=== PATIENT | female | born 1995 | race Caucasian/White ===

== ENCOUNTER 2016-07-08 18:51 | Emergency (ER) | payer OTHER ==
--- NOTE | 2016-07-08 20:47 | ED CLINICAL REPORT ---
Clinical Report - Physicians/Mid Levels [facility] [address] [place] [address] 07/08/2016 18:53 Patient: KRYS COLE Time Seen: 20:18; initial patient contact, initial documentation, patient care assumed. Arrived- By private vehicle. Historian- patient and mother. HISTORY OF PRESENT ILLNESS Chief Complaint: SINUS PAIN. This started about 1 weeks ago and is still present. It was abrupt in onset and has been constant. The illness is described as severe. The patient has had a cough, nasal congestion and sinus pressure. No sputum production, difficulty breathing, fever, muscle aches or sore throat. No ear pain. (swollen thing in nose, everyone keeps saying I am here for sinuses, I am here for this thing in my nose, it is swollen, painful, and now my R side of face is getting swollen). Additional history - No known contact with a sick individual. No recent travel. Similar symptoms previously: None. Recent medical care: Not recently seen/assessed. REVIEW OF SYSTEMS The patient has had a pressure-like facial headache. No vomiting or diarrhea. All systems otherwise negative, except as recorded above. PAST HISTORY See nurses notes. PROBLEMS: Depression. Anxiety Reaction. OCD. ADD - Attention Deficit Disorder. PCOS. Migraine Headache. IBS. Asthma. Gastroesophageal Reflux Disease. --19:22 Karolina Mchugh R.N. ADDITIONAL SURGERIES: Adenoidectomy. Tonsillectomy. --19:22 Karolina Mchugh RGilda. SOCIAL HISTORY Never smoker. Not exposed to second-hand smoke at home. No alcohol use or drug use. No recent travel. Is a local resident. FAMILY HISTORY Negative. ADDITIONAL NOTES The nursing notes have been reviewed with agreement regarding the chief complaint, HPI, ROS, PMH and patient medications and allergies. PHYSICAL EXAM Vital Signs: 07/08/2016 19:23 BP: 143/87. HR: 99. RR: 18. O2 saturation: 100%. Temp: 98.8 F. Have been reviewed as normal and appear to be correct. Appearance: Alert. No acute distress. Head: Tenderness present to percussion/palpation of the sinuses: severe right maxillary tenderness. Eyes: Pupils equal, round and reactive to light. Eyes normal inspection. ENT: Ears normal. Nose abnormal. Pharynx normal. Uvula midline. Normal ear exam. No nasal discharge, pharyngeal erythema, mouth ulcerations, tonsillar exudate or peritonsillar mass. No muffled or hoarse voice, trismus or trouble handling secretions. (R side of cheek area appears slightly swollen). The mucous membranes are not dry. (swollen area to inside R nare, ? start of abscess, no erythema, no dc, tender). Neck: Normal inspection. Neck supple. CVS: Normal heart rate and rhythm. Heart sounds normal. Pulses normal. Respiratory: No respiratory distress. Breath sounds normal. Abdomen: Severely obese. Back: Normal inspection. Skin: Skin warm and dry. Normal skin color. No rash. Normal skin turgor. Extremities: Extremities exhibit normal ROM. No lower extremity edema. Neuro: Oriented X 3. No motor deficit. No sensory deficit. PROGRESS AND PROCEDURES Patient and mother counseled in person regarding the patient's stable condition and diagnosis. Differential Diagnosis: Other possible considerations: sinusitis, nasal polyp, tumor, abscess, mrsa. Above considerations are based on history and physical exam. Differential diagnosis was discussed with patient and patient's mother. Disposition: Discharged home in good and improved condition (20:47). Condition: good and stable. CLINICAL IMPRESSION Single superficial abscess (R nare). INSTRUCTIONS (warm compresses, as discussed). Warnings: GENERAL WARNINGS: Return or contact your physician immediately if your condition worsens or changes unexpectedly, if not improving as expected, or if other problems arise. Specifically return if problem worsens. Prescription Medications: Bactrim DS: take 1 tablet orally every 12 hours for 10 days. No refill. Substitution is not permissible. [place] 5 mg / 325 mg tablets: take 1 to 2 orally every 6 hours as needed for pain. Dispense fifteen (15). No refills. Substitution is permissible. Motrin 800 mg tablets: take 1 tablet orally every 8 hours as needed for pain. Dispense thirty (30). No refills. Substitution is permissible. Bactroban 2% ointment: apply small amount to affected area three times daily for 5 days. Dispense twenty-two (22) grams. No refills. Substitution is permissible. Follow-up: Follow up with your doctor in about two days even if well. Call for an appointment. Summary of care provided to patient. Understanding of the discharge instructions verbalized by patient and parent. Follow-up with: Judson Haro MD, ENT, , [address], [facility], [address]; Erik Gonzales MD, ENT, , [facility], [address], [address], [place] [address]; Sarbjit Dominguez MD, ENT, , [facility], [facility] [address] [facility] [address]; Rory Middleton MD, ENT, , [facility], [facility] [address] [facility] [address]; Judson Thompson MD, ENT, , [facility], [facility] [address] [facility] [address]; Darren Silva MD, ENT, , [place] [facility] Office, [address] [facility] [facility] [address], [place], [address] Follow up in about two days as needed. Call for an appointment. Summary of care provided to patient. (Electronically signed by Khushbu Casas A.R.N.P. 07/08/2016 23:14)
--- NOTE | 2016-07-08 20:47 | ED CLINICAL REPORT ---
Clinical Report - Physicians/Mid Levels [facility] [address] [place] [address] 07/08/2016 18:53 Patient: KRYS COLE Time Seen: 20:18; initial patient contact, initial documentation, patient care assumed. Arrived- By private vehicle. Historian- patient and mother. HISTORY OF PRESENT ILLNESS Chief Complaint: SINUS PAIN. This started about 1 weeks ago and is still present. It was abrupt in onset and has been constant. The illness is described as severe. The patient has had a cough, nasal congestion and sinus pressure. No sputum production, difficulty breathing, fever, muscle aches or sore throat. No ear pain. (swollen thing in nose, everyone keeps saying I am here for sinuses, I am here for this thing in my nose, it is swollen, painful, and now my R side of face is getting swollen). Additional history - No known contact with a sick individual. No recent travel. Similar symptoms previously: None. Recent medical care: Not recently seen/assessed. REVIEW OF SYSTEMS The patient has had a pressure-like facial headache. No vomiting or diarrhea. All systems otherwise negative, except as recorded above. PAST HISTORY See nurses notes. PROBLEMS: Depression. Anxiety Reaction. OCD. ADD - Attention Deficit Disorder. PCOS. Migraine Headache. IBS. Asthma. Gastroesophageal Reflux Disease. --19:22 Karolina Mchugh R.N. ADDITIONAL SURGERIES: Adenoidectomy. Tonsillectomy. --19:22 Karolina Mchugh RGilda. SOCIAL HISTORY Never smoker. Not exposed to second-hand smoke at home. No alcohol use or drug use. No recent travel. Is a local resident. FAMILY HISTORY Negative. ADDITIONAL NOTES The nursing notes have been reviewed with agreement regarding the chief complaint, HPI, ROS, PMH and patient medications and allergies. PHYSICAL EXAM Vital Signs: 07/08/2016 19:23 BP: 143/87. HR: 99. RR: 18. O2 saturation: 100%. Temp: 98.8 F. Have been reviewed as normal and appear to be correct. Appearance: Alert. No acute distress. Head: Tenderness present to percussion/palpation of the sinuses: severe right maxillary tenderness. Eyes: Pupils equal, round and reactive to light. Eyes normal inspection. ENT: Ears normal. Nose abnormal. Pharynx normal. Uvula midline. Normal ear exam. No nasal discharge, pharyngeal erythema, mouth ulcerations, tonsillar exudate or peritonsillar mass. No muffled or hoarse voice, trismus or trouble handling secretions. (R side of cheek area appears slightly swollen). The mucous membranes are not dry. (swollen area to inside R nare, ? start of abscess, no erythema, no dc, tender). Neck: Normal inspection. Neck supple. CVS: Normal heart rate and rhythm. Heart sounds normal. Pulses normal. Respiratory: No respiratory distress. Breath sounds normal. Abdomen: Severely obese. Back: Normal inspection. Skin: Skin warm and dry. Normal skin color. No rash. Normal skin turgor. Extremities: Extremities exhibit normal ROM. No lower extremity edema. Neuro: Oriented X 3. No motor deficit. No sensory deficit. PROGRESS AND PROCEDURES Patient and mother counseled in person regarding the patient's stable condition and diagnosis. Differential Diagnosis: Other possible considerations: sinusitis, nasal polyp, tumor, abscess, mrsa. Above considerations are based on history and physical exam. Differential diagnosis was discussed with patient and patient's mother. Disposition: Discharged home in good and improved condition (20:47). Condition: good and stable. CLINICAL IMPRESSION Single superficial abscess (R nare). INSTRUCTIONS (warm compresses, as discussed). Warnings: GENERAL WARNINGS: Return or contact your physician immediately if your condition worsens or changes unexpectedly, if not improving as expected, or if other problems arise. Specifically return if problem worsens. Prescription Medications: Bactrim DS: take 1 tablet orally every 12 hours for 10 days. No refill. Substitution is not permissible. [place] 5 mg / 325 mg tablets: take 1 to 2 orally every 6 hours as needed for pain. Dispense fifteen (15). No refills. Substitution is permissible. Motrin 800 mg tablets: take 1 tablet orally every 8 hours as needed for pain. Dispense thirty (30). No refills. Substitution is permissible. Bactroban 2% ointment: apply small amount to affected area three times daily for 5 days. Dispense twenty-two (22) grams. No refills. Substitution is permissible. Follow-up: Follow up with your doctor in about two days even if well. Call for an appointment. Summary of care provided to patient. Understanding of the discharge instructions verbalized by patient and parent. Follow-up with: Judson Haro MD, ENT, , [address], [facility], [address]; Erik Gonzales MD, ENT, , [facility], [address], [address], [place] [address]; Sarbjit Dominguez MD, ENT, , [facility], [facility] [address] [facility] [address]; Rory Middleton MD, ENT, , [facility], [facility] [address] [facility], [place] [address]; Judson Thompson MD, ENT, , [facility], [facility] [address] [facility] [address]; Darren Silva MD, ENT, , [place] [facility] Office, [address], [place], [address] Follow up in about two days as needed. Call for an appointment. Summary of care provided to patient. (Electronically signed by Khushbu Casas A.R.N.P. 07/08/2016 23:14)
--- NOTE | 2016-07-08 20:48 | ED NURSING NOTES ---
Clinical Report - Nurses [facility] [address] [place] [address] 07/08/2016 18:53 Patient: KRYS COLE TRIAGE Triage time 19:18 Jul 08 2016. Acuity: LEVEL 4. Chief Complaint: (Nasal congestion, swelling, headache). 19:23 07/08/16. SEPSIS SCREEN: Sepsis Screen. Negative (no infection suspected/documented). JULIO C COMA SCORE: [place] Coma Scale: 15- eyes open spontaneously (4); best verbal response- oriented x 4 (5); best motor response- obeys commands (6). --19:23 Karolina Mchugh R.N. 19:23 07/08/16. BP: 143/87. HR: 99. RR: 18. O2 saturation: 100%. Temp: 98.8 F. Pain level now 9/10. --19:23 Karolina Mchugh R.N. Weight: 146 kg stated. Height/Length: 68 inches Per Patient. BMI: 49. --19:18 Karolina Mchugh R.N. Medications Adderall XR Oral. --19:19 Karolina Mchugh R.N. FLUoxetine HCl Oral. --19:19 Karolina Mchugh R.N. Dicyclomine HCl Oral. --19:20 Karolina Mchugh R.N. Topiramate Oral. --19:20 Karolina Mchugh R.NEleazar Ranitidine HCl Oral. --19:20 Karolina Mchugh R.N. PriLOSEC Oral. --19:20 Karolina Mchugh R.N. Potassium. --19:20 Karolina Mchugh R.N. Jolessa Oral. --19:20 Karolina Mchugh R.N. Biotin. --19:21 Karolina Mchugh R.N. Medication/allergy information source: the patient. --19:23 Karolina Mchugh R.N. Allergies Penicillins. --19:19 Karolina Mchugh R.N. History Arrived by private vehicle. Historian: patient. This started yesterday. ( Pain and swelling in nose since yesterday. States feeling pressure in face down to jaw). 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 PAST MEDICAL HX: Last normal menstrual period- yesterday. SOCIAL HX: Never smoker. Occasional alcohol use. No drug use. No infectious disease exposure. ABUSE ASSESSMENT: No report of abuse. NUTRITIONAL RISK ASSESSMENT: The nutritional risk assessment revealed no deficiencies. FUNCTIONAL ASSESSMENT: Functional assessment: no impairments noted. LEARNING NEEDS ASSESSMENT: The learning needs assessment revealed no barriers. SKIN INTEGRITY ASSESSMENT: Skin integrity risk assessment completed. No skin integrity risk identified. --19:23 Karolina Mchugh R.N. PROBLEMS: Depression. Anxiety Reaction. OCD. ADD - Attention Deficit Disorder. PCOS. Migraine Headache. IBS. Asthma. Gastroesophageal Reflux Disease. --19:22 Karolina Mchugh R.N. ADDITIONAL SURGERIES: Adenoidectomy. Tonsillectomy. --19:22 Karolina Mchugh R.N. Interventions ID band on patient. --19:23 Karolina Mchugh R.N. PHYSICAL ASSESSMENT 19:40. Ambulatory to room. GENERAL / NEURO / PSYCH: Alert. Oriented X 4. HEENT: No facial asymmetry noted. Mucous membranes are pink. RESPIRATORY: Respirations not labored. SKIN: Skin intact. Skin is warm and dry. Normal skin turgor. --19:41 Harish Ledesma R.N. NURSING PROGRESS NOTES 19:41. Head of bed elevated. Two patient identifiers checked. Call light placed in reach. Bed placed in lowest position. Brakes of bed on. Patient ready for evaluation- chart flagged. --19:41 Harish Ledesma R.N. 20:48 07/08/2016 Hydrocodone-APAP (Hydrocodone-Acetaminophen) PO 5/325 mg Tablets 1 tab given. Allergies verified, confirmed 5 rights and sedative warning given to the patient. --20:56 Harish Ledesma R.N. 20:51 07/08/2016 Toradol (Ketorolac Tromethamine) IM 60 mg given. Given in the left ventral gluteus. Allergies verified and confirmed 5 rights. --20:56 Harish Ledesma R.N. DISPOSITION / DISCHARGE Condition at departure: improved. The patient was discharged home and accompanied by parent. She left the Emergency Department ambulatory and via private vehicle. --21:09 Kei Mcadams R.N. 21:08 07/08/16. BP: 150/40. HR: 80. RR: 20. O2 saturation: 98%. Temp: 98.8 F. Pain level now 510. --21:09 Kei Mcadams R.N. Locked/Released at 07/08/2016 21:10 by Kei Mcadams R.N.
--- NOTE | 2016-07-08 20:48 | ED ORDER SUMMARY ---
..... Patient: KRYS COLE OrderSheet [facility] VisitID: [id number] [address] [place] [address] 20y, F Registration Date/Time: 07/08/2016 ORDER SHEET Weight: 146.0 kg (stated) Allergies: Penicillins GENERAL ORDERS: MEDICATION ORDERS: Toradol IM 60 mg (NOW) (20:47 07/08/2016 HBivens A.R.N.P.) (Ack 20:49 JQuivey R.N.) (20:56 JQuivey R.N.) Hydrocodone-APAP PO 5/325 mg (NOW, HIGH ALERT MEDICATION) (20:47 07/08/2016 HBivens A.R.N.P.) (Ack 20:49 JQuivey R.N.) (20:56 JQuivey R.N.) IV FLUIDS: ORDER SHEET NOTES: [Electronically signed by Kei Mcadams R.N. (21:10 07/08/2016)] [Electronically signed by Khushbu CasasR.N.P. (23:14 07/08/2016)] [Electronically locked/signed by Kei Mcadams R.N. (21:10 07/08/2016)]
--- NOTE | 2016-07-08 20:48 | ED ORDER SUMMARY ---
..... Patient: KRYS COLE OrderSheet [facility] VisitID: [id number] [address] [place] [address] 20y, F Registration Date/Time: 07/08/2016 ORDER SHEET Weight: 146.0 kg (stated) Allergies: Penicillins GENERAL ORDERS: MEDICATION ORDERS: Toradol IM 60 mg (NOW) (20:47 07/08/2016 HBivens A.R.N.P.) (Ack 20:49 JQuivey R.N.) (20:56 JQuivey R.N.) Hydrocodone-APAP PO 5/325 mg (NOW, HIGH ALERT MEDICATION) (20:47 07/08/2016 HBivens A.R.N.P.) (Ack 20:49 JQuivey R.N.) (20:56 JQuivey R.N.) IV FLUIDS: ORDER SHEET NOTES: [Electronically signed by Kei Mcadams R.N. (21:10 07/08/2016)] [Electronically signed by Khushbu CasasR.N.P. (23:14 07/08/2016)] [Electronically locked/signed by Kei Mcadams R.N. (21:10 07/08/2016)]
--- NOTE | 2016-07-08 20:48 | ED NURSING NOTES ---
Clinical Report - Nurses [facility] [address] [place] [address] 07/08/2016 18:53 Patient: KRYS COLE TRIAGE Triage time 19:18 Jul 08 2016. Acuity: LEVEL 4. Chief Complaint: (Nasal congestion, swelling, headache). 19:23 07/08/16. SEPSIS SCREEN: Sepsis Screen. Negative (no infection suspected/documented). JULIO C COMA SCORE: [place] Coma Scale: 15- eyes open spontaneously (4); best verbal response- oriented x 4 (5); best motor response- obeys commands (6). --19:23 Karolina Mchugh R.N. 19:23 07/08/16. BP: 143/87. HR: 99. RR: 18. O2 saturation: 100%. Temp: 98.8 F. Pain level now 9/10. --19:23 Karolina Mchugh R.N. Weight: 146 kg stated. Height/Length: 68 inches Per Patient. BMI: 49. --19:18 Karolina Mchugh R.N. Medications Adderall XR Oral. --19:19 Karolina Mchugh R.N. FLUoxetine HCl Oral. --19:19 Karolina Mchugh R.N. Dicyclomine HCl Oral. --19:20 Karolina Mchugh R.N. Topiramate Oral. --19:20 Karolina Mchugh R.NEleazar Ranitidine HCl Oral. --19:20 Karolina Mchugh R.N. PriLOSEC Oral. --19:20 Karolina Mchugh R.N. Potassium. --19:20 Karolina Mchugh R.N. Jolessa Oral. --19:20 Karolina Mchugh R.N. Biotin. --19:21 Karolina Mchugh R.N. Medication/allergy information source: the patient. --19:23 Karolina Mchugh R.N. Allergies Penicillins. --19:19 Karolina Mchugh R.N. History Arrived by private vehicle. Historian: patient. This started yesterday. ( Pain and swelling in nose since yesterday. States feeling pressure in face down to jaw). Treatment WEB PROJECT MANAGER: None. PAST MEDICAL HX: Last normal menstrual period- yesterday. SOCIAL HX: Never smoker. Occasional alcohol use. No drug use. No infectious disease exposure. ABUSE ASSESSMENT: No report of abuse. NUTRITIONAL RISK ASSESSMENT: The nutritional risk assessment revealed no deficiencies. FUNCTIONAL ASSESSMENT: Functional assessment: no impairments noted. LEARNING NEEDS ASSESSMENT: The learning needs assessment revealed no barriers. SKIN INTEGRITY ASSESSMENT: Skin integrity risk assessment completed. No skin integrity risk identified. --19:23 Karolina Mchugh R.N. PROBLEMS: Depression. Anxiety Reaction. OCD. ADD - Attention Deficit Disorder. PCOS. Migraine Headache. IBS. Asthma. Gastroesophageal Reflux Disease. --19:22 Karolina Mchugh R.N. ADDITIONAL SURGERIES: Adenoidectomy. Tonsillectomy. --19:22 Karolina Mhcugh R.N. Interventions ID band on patient. --19:23 Karolina Mchugh R.N. PHYSICAL ASSESSMENT 19:40. Ambulatory to room. GENERAL / NEURO / PSYCH: Alert. Oriented X 4. HEENT: No facial asymmetry noted. Mucous membranes are pink. RESPIRATORY: Respirations not labored. SKIN: Skin intact. Skin is warm and dry. Normal skin turgor. --19:41 Harish Ledesma R.N. NURSING PROGRESS NOTES 19:41. Head of bed elevated. Two patient identifiers checked. Call light placed in reach. Bed placed in lowest position. Brakes of bed on. Patient ready for evaluation- chart flagged. --19:41 Harish Ledesma R.N. 20:48 07/08/2016 Hydrocodone-APAP (Hydrocodone-Acetaminophen) PO 5/325 mg Tablets 1 tab given. Allergies verified, confirmed 5 rights and sedative warning given to the patient. --20:56 Harish Ledesma R.N. 20:51 07/08/2016 Toradol (Ketorolac Tromethamine) IM 60 mg given. Given in the left ventral gluteus. Allergies verified and confirmed 5 rights. --20:56 Harish Ledesma R.N. DISPOSITION / DISCHARGE Condition at departure: improved. The patient was discharged home and accompanied by parent. She left the Emergency Department ambulatory and via private vehicle. --21:09 Kei Mcadams R.N. 21:08 07/08/16. BP: 150/40. HR: 80. RR: 20. O2 saturation: 98%. Temp: 98.8 F. Pain level now 510. --21:09 Kei Mcadams R.N. Locked/Released at 07/08/2016 21:10 by Kei Mcadams R.N.
--- NOTE | 2016-07-08 23:15 | ED MED RECONCILIATION SUMMARY ---
Patient: KRYS COLE Medication Reconciliation Report [facility] VisitID: [id number] [address] [place] [address] 20y, F Registration Date/Time: 07/08/2016 Weight: 146.0 kg Height/Length: 68 in. BMI: 49.0 ALLERGIES: Penicillins The patient's Home Medications are listed below: THE FOLLOWING MEDICATIONS NEED TO BE RECONCILED: Adderall XR Oral Biotin Dicyclomine HCl Oral FLUoxetine HCl Oral Jolessa Oral Potassium PriLOSEC Oral Ranitidine HCl Oral Topiramate Oral The source(s) of the original Home Medication information: patient The following Medications were given to the patient in the Emergency Department: Hydrocodone-APAP [PO] PO 1 tab, administered: 07/08/2016 8:48:00 PM Toradol [IM] IM 60 mg, administered: 07/08/2016 8:51:00 PM The following Medications were prescribed to the patient: Bactrim DS: take 1 tablet orally every 12 hours for 10 days. No refill. Substitution is not permissible. -- Khushbu Casas, A.R.N.P. [place] 5 mg / 325 mg tablets: take 1 to 2 orally every 6 hours as needed for pain. Dispense fifteen (15). No refills. Substitution is permissible. -- Khushbu Casas, A.R.N.P. Motrin 800 mg tablets: take 1 tablet orally every 8 hours as needed for pain. Dispense thirty (30). No refills. Substitution is permissible. -- Khushbu Casas A.R.N.P. Bactroban 2% ointment: apply small amount to affected area three times daily for 5 days. Dispense twenty-two (22) grams. No refills. Substitution is permissible. -- Khushbu Casas A.R.N.P.
--- NOTE | 2016-07-08 23:15 | ED MAR SUMMARY ---
..... Medication Administration Record [facility] [address] [place] [address] Patient: KRYS COLE Visit ID: [id number] 20y, F Weight: 146.0 kg Height/Length: 68 in BMI: 49 ALLERGIES: Penicillins Given 20:48 07/08/2016 Harish Ledesma, R.N. Medication Administered: HYDROCODONE-APAP [PO] (HYDROCODONE-ACETAMINOPHEN), Dose: 1 tab 5/325 mg Tablets PO. Medication Ordered: Hydrocodone-APAP PO 5/325 mg (NOW, HIGH ALERT MEDICATION). Given 20:51 07/08/2016 Harish Ledesma, R.N. Medication Administered: TORADOL [IM] (KETOROLAC TROMETHAMINE), Dose: 60 mg IM. Medication Ordered: Toradol IM 60 mg (NOW).
--- NOTE | 2016-07-08 23:15 | ED DISCHARGE INSTRUCTIONS ---
Patient: KRYS COLE General Instructions [facility] VisitID: [id number] [address] [place] [address] 20y, F Registration Date/Time: 07/08/2016 Single superficial abscess (R nare). INSTRUCTIONS (warm compresses, as discussed). Warnings: GENERAL WARNINGS: Return or contact your physician immediately if your condition worsens or changes unexpectedly, if not improving as expected, or if other problems arise. Specifically return if problem worsens. Prescription Medications: Bactrim DS: take 1 tablet orally every 12 hours for 10 days. No refill. Substitution is not permissible. [place] 5 mg / 325 mg tablets: take 1 to 2 orally every 6 hours as needed for pain. Dispense fifteen (15). No refills. Substitution is permissible. Motrin 800 mg tablets: take 1 tablet orally every 8 hours as needed for pain. Dispense thirty (30). No refills. Substitution is permissible. Bactroban 2% ointment: apply small amount to affected area three times daily for 5 days. Dispense twenty-two (22) grams. No refills. Substitution is permissible. Follow-up: Follow up with your doctor in about two days even if well. Call for an appointment. Summary of care provided to patient. Understanding of the discharge instructions verbalized by patient and parent. Follow-up with: Judson Haro MD, ENT, , [facility] [address] [place] [address]; Erik Gonzales MD, ENT, , [facility], [address] [place] [address], [address], [place] [address]; Sarbjit Dominguez MD, ENT, , [facility], [address] [place] [address]; Rory Middleton MD, ENT, , [facility], [facility] [place] [address]; Judson Thompson MD, ENT, , [facility], [facility] [address] [address]; Darren Silva MD, ENT, , [place] [facility], [address] [facility] [address], [place], [address] Follow up in about two days as needed. Call for an appointment. Summary of care provided to patient. ADDITIONAL INFORMATION Abscess (Antibiotic Treatment Only) An abscess (sometimes called a boil) occurs when bacteria get trapped under the skin and begin to grow. Pus forms inside the abscess as the body responds to the bacteria. An abscess can occur with an insect bite, ingrown hair, blocked oil gland, pimple, cyst, or puncture wound. In the early stages, redness and tenderness are the only symptoms. Sometimes, this stage can be treated with antibiotics alone. If the abscess does not respond to antibiotic treatment, it will need to be drained with a small cut, under local anesthesia. Home care The following will help you care for your abscess at home: Soak the wound in hot water or apply hot packs (small towel soaked in hot water) to the area for 20 minutes at a time. Do this three to four times a day. Apply antibiotic cream or ointment onto the skin 3-4 times a day, unless something else was prescribed. Some ointments include an antibiotic plus a local pain reliever. If your doctor prescribed antibiotics, do not stop taking this medication until you have finished the prescribed course or the doctor tells you to stop. You may use an jbjw-szn-skqkcle pain medication to control pain, unless another pain medicine was prescribed. If you have chronic liver or kidney disease or ever had a stomach ulcer or GI bleeding, talk with your doctor before using these any of these. Follow-up care Follow up with your health care provider as advised by our staff. Look at your wound each day for the signs of worsening infection listed below. When to seek medical care Get prompt medical attention if any of the following occur: An increase in redness or swelling Red streaks in the skin leading away from the abscess An increase in local pain or swelling Fever of 100.4F (38C) or higher, or as directed by your health care provider Pus or fluid coming from the abscess Staph Infection (MRSA) "Staph" is the short name for the common bacteria called "staphylococcus aureus". Staph bacteria are often present on the skin without causing an infection. If it gets under the skin an infection occurs. This causes redness, tenderness, swelling and sometimes fluid drainage. MRSA stands for "Methicillin-Resistant Staph Aureus". Unlike a common staph infection, MRSA bacteria are resistant to the usual antibiotics and harder to treat. Also, MRSA is more toxic than common staph bacteria. It can spread quickly throughout the body and cause a life-threatening illness. MRSA is spread to others by direct physical contact with the bacteria. MRSA can also be transmitted from items contaminated by a person who has the bacteria, such as bandages, towels, bed sheets, or sports equipment. It is not spread through the air. Once you have a MRSA skin infection, you are at risk of having it recur in the future. If MRSA infection is suspected, the doctor may take a wound culture to confirm the diagnosis. Any abscess will be drained. One or sometimes two antibiotics that work against MRSA will be prescribed. Home Care: 1) Take any antibiotics prescribed exactly as directed until they are gone. 2) Follow the same washing procedures as outlined for Household Members below. 3) Keep draining wounds covered with clean, dry bandages. Change dressings as they become soiled. 4) You and those in contact with you should wash their hands frequently with soap and warm water or use an alcohol-based hand kitchen and counter worker. Do this after each time you change the bandage or touch the wound. 5) Avoid sharing personal items such as towels, washcloths, razors, clothing, or uniforms. Wash soiled sheets, towels or clothes in hot water with laundry detergent. Use an automatic clothes dryer set on high to kill any remaining bacteria. 6) Remove any artificial nails and nail macedonian. 7) If you use a gym, wipe down equipment before and after each use. Treatment Of Household Members If you have been diagnosed with possible MRSA infection, those living with you are at higher risk of carrying the bacteria on their skin or in their nose, even if there is no sign of infection. Bacteria must be removed from the skin of all household members (including you) at the same time, so that it is not passed back and forth. Advise them to remove the bacteria as follows: Wash your whole body (scalp to toes) daily for five days with Hibiclens (chlorhexidine). Scrub fingernails with a brush for one minute twice a day. If any skin infections are present (boils, abscess, infected cut) these must be treated by a doctor. Washing alone will not treat a MRSA infection. Clean counter tops and children's toys; do not share personal items such as toothbrush and razors. It is okay to share glasses, plates, utensils. If antibiotic ointment was prescribed use it as directed. Follow Up with your doctor or as advised by our staff. If a wound culture was taken, call as directed in two days to obtain the results. If the culture result is positive for MRSA, tell medical personnel in the future that you were treated for this type of infection. Get Prompt Medical Attention if any of the following occur: -- Increasing redness, swelling or pain -- Red streaks in the skin around the wound -- Weakness or dizziness -- New appearance of pus or drainage from the wound -- New fever over 100.4 F (38.0 C) Sulfamethoxazole, Trimethoprim Oral tablet What is this medicine? SULFAMETHOXAZOLE; TRIMETHOPRIM or SMX-TMP (suhl fuh meth OK chantel zohl; trye METH oh prim) is a combination of a sulfonamide antibiotic and a second antibiotic, trimethoprim. It is used to treat or prevent certain kinds of bacterial infections. It will not work for colds, flu, or other viral infections. How should I use this medicine? Take this medicine by mouth with a full glass of water. Follow the directions on the prescription label. Take your medicine at regular intervals. Do not take it more often than directed. Do not skip doses or stop your medicine early. Talk to your acupressurist regarding the use of this medicine in children. Special care may be needed. This medicine has been used in children as young as 2 months of age. What side effects may I notice from receiving this medicine? Side effects that you should report to your doctor or health wound care specialist as soon as possible: allergic reactions like skin rash or hives, swelling of the face, lips, or tongue breathing problems fever or chills, sore throat irregular heartbeat, chest pain joint or muscle pain pain or difficulty passing urine red pinpoint spots on skin redness, blistering, peeling or loosening of the skin, including inside the mouth unusual bleeding or bruising unusually weak or tired yellowing of the eyes or skin Side effects that usually do not require medical attention (report to your doctor or health wound care specialist if they continue or are bothersome): diarrhea dizziness headache loss of appetite nausea, vomiting nervousness What may interact with this medicine? Do not take this medicine with any of the following medications: aminobenzoate potassium dofetilide metronidazole This medicine may also interact with the following medications: PAYAM inhibitors like benazepril, enalapril, lisinopril, and ramipril cyclosporine digoxin diuretics indomethacin medicines for diabetes methenamine methotrexate phenytoin potassium supplements pyrimethamine sulfinpyrazone tricyclic antidepressants warfarin What if I miss a dose? If you miss a dose, take it as soon as you can. If it is almost time for your next dose, take only that dose. Do not take double or extra doses. Where should I keep my medicine? Keep out of the reach of children. Store at room temperature between 20 to 25 degrees C (68 to 77 degrees F). Protect from light. Throw away any unused medicine after the expiration date. What should I tell my health care provider before I take this medicine? They need to know if you have any of these conditions: anemia asthma being treated with anticonvulsants if you frequently drink alcohol containing drinks kidney disease liver disease low level of folic acid or rlghsjg-[id number]-zdbhipkbi dehydrogenase poor nutrition or malabsorption porphyria severe allergies thyroid disorder an unusual or allergic reaction to sulfamethoxazole, trimethoprim, sulfa drugs, other medicines, foods, dyes, or preservatives or trying to get breast-feeding What should I watch for while using this medicine? Tell your doctor or health wound care specialist if your symptoms do not improve. Drink several glasses of water a day to reduce the risk of kidney problems. Do not treat diarrhea with over the counter products. Contact your doctor if you have diarrhea that lasts more than 2 days or if it is severe and watery. This medicine can make you more sensitive to the sun. Keep out of the sun. If you cannot avoid being in the sun, wear protective clothing and use a sunscreen. Do not use sun lamps or tanning beds/booths. Hydrocodone Bitartrate, Acetaminophen Oral tablet What is this medicine? ACETAMINOPHEN; HYDROCODONE (a set a PETER loi fen; carlos droe KOE done) is a pain reliever. It is used to treat mild to moderate pain. How should I use this medicine? Take this medicine by mouth. Swallow it with a full glass of water. Follow the directions on the prescription label. If the medicine upsets your stomach, take the medicine with food or milk. Do not take more than you are told to take. Talk to your acupressurist regarding the use of this medicine in children. This medicine is not approved for use in children. What side effects may I notice from receiving this medicine? Side effects that you should report to your doctor or health wound care specialist as soon as possible: allergic reactions like skin rash, itching or hives, swelling of the face, lips, or tongue breathing problems confusion feeling faint or lightheaded, falls stomach pain yellowing of the eyes or skin Side effects that usually do not require medical attention (report to your doctor or health wound care specialist if they continue or are bothersome): nausea, vomiting stomach upset What may interact with this medicine? alcohol antihistamines isoniazid medicines for depression, anxiety, or psychotic disturbances medicines for sleep muscle relaxants naltrexone narcotic medicines (opiates) for pain phenobarbital ritonavir tramadol What if I miss a dose? If you miss a dose, take it as soon as you can. If it is almost time for your next dose, take only that dose. Do not take double or extra doses. Where should I keep my medicine? Keep out of the reach of children. This medicine can be abused. Keep your medicine in a safe place to protect it from theft. Do not share this medicine with anyone. Selling or giving away this medicine is dangerous and against the law. Store at room temperature between 15 and 30 degrees C (59 and 86 degrees F). Protect from light. Keep container tightly closed. Throw away any unused medicine after the expiration date. Discard unused medicine and used packaging carefully. Pets and children can be harmed if they find used or lost packages. What should I tell my health care provider before I take this medicine? They need to know if you have any of these conditions: brain tumor Crohn's disease, inflammatory bowel disease, or ulcerative colitis drink more than 3 alcohol-containing drinks per day drug abuse or addiction head injury heart or circulation problems kidney disease or problems going to the bathroom liver disease lung disease, asthma, or breathing problems an unusual or allergic reaction to acetaminophen, hydrocodone, other opioid analgesics, other medicines, foods, dyes, or preservatives or trying to get breast-feeding What should I watch for while using this medicine? Tell your doctor or health wound care specialist if your pain does not go away, if it gets worse, or if you have new or a different type of pain. You may develop tolerance to the medicine. Tolerance means that you will need a higher dose of the medicine for pain relief. Tolerance is normal and is expected if you take the medicine for a long time. Do not suddenly stop taking your medicine because you may develop a severe reaction. Your body becomes used to the medicine. This does NOT mean you are addicted. Addiction is a behavior related to getting and using a drug for a non-medical reason. If you have pain, you have a medical reason to take pain medicine. Your doctor will tell you how much medicine to take. If your doctor wants you to stop the medicine, the dose will be slowly lowered over time to avoid any side effects. You may get drowsy or dizzy when you first start taking the medicine or change doses. Do not drive, use machinery, or do anything that may be dangerous until you know how the medicine affects you. Stand or sit up slowly. There are different types of narcotic medicines (opiates) for pain. If you take more than one type at the same time, you may have more side effects. Give your health care provider a list of all medicines you use. Your doctor will tell you how much medicine to take. Do not take more medicine than directed. Call emergency for help if you have problems breathing. The medicine will cause constipation. Try to have a bowel movement at least every 2 to 3 days. If you do not have a bowel movement for 3 days, call your doctor or health wound care specialist. Too much acetaminophen can be very dangerous. Do not take Tylenol (acetaminophen) or medicines that contain acetaminophen with this medicine. Many non-prescription medicines contain acetaminophen. Always read the labels carefully. Ibuprofen Oral tablet What is this medicine? IBUPROFEN (eye BYOO proe fen) is a non-steroidal anti-inflammatory drug (NSAID). It is used for dental pain, fever, headaches or migraines, osteoarthritis, rheumatoid arthritis, or painful monthly periods. It can also relieve minor aches and pains caused by a cold, flu, or sore throat. How should I use this medicine? Take this medicine by mouth with a glass of water. Follow the directions on the prescription label. Take this medicine with food if your stomach gets upset. Try to not lie down for at least 10 minutes after you take the medicine. Take your medicine at regular intervals. Do not take your medicine more often than directed. A special MedGuide will be given to you by the pharmacist with each prescription and refill. Be sure to read this information carefully each time. Talk to your acupressurist regarding the use of this medicine in children. Special care may be needed. What side effects may I notice from receiving this medicine? Side effects that you should report to your doctor or health wound care specialist as soon as possible: allergic reactions like skin rash, itching or hives, swelling of the face, lips, or tongue black or bloody stools, blood in the urine or in vomit breathing problems changes in vision chest pain general ill feeling or flu-like symptoms nausea or vomiting redness, blistering, peeling or loosening of the skin, including inside the mouth slurred speech or weakness on one side of the body stomach pain unexplained weight gain or swelling unusually weak or tired yellowing of eyes or skin Side effects that usually do not require medical attention (report to your doctor or health wound care specialist if they continue or are bothersome): constipation or diarrhea dizziness gas or heartburn stomach upset What may interact with this medicine? Do not take this medicine with any of the following medications: cidofovir ketorolac methotrexate pemetrexed This medicine may also interact with the following medications: alcohol aspirin diuretics lithium other drugs for inflammation like prednisone warfarin What if I miss a dose? If you miss a dose, take it as soon as you can. If it is almost time for your next dose, take only that dose. Do not take double or extra doses. Where should I keep my medicine? Keep out of the reach of children. Store at room temperature between 15 and 30 degrees C (59 and 86 degrees F). Keep container tightly closed. Throw away any unused medicine after the expiration date. What should I tell my health care provider before I take this medicine? They need to know if you have any of these conditions: asthma cigarette smoker drink more than 3 alcohol containing drinks a day heart disease or circulation problems such as heart failure or leg edema (fluid retention) high blood pressure kidney disease liver disease stomach bleeding or ulcers an unusual or allergic reaction to ibuprofen, aspirin, other NSAIDS, other medicines, foods, dyes, or preservatives or trying to get breast-feeding What should I watch for while using this medicine? Tell your doctor or healthcare professional if your symptoms do not start to get better or if they get worse. This medicine does not prevent heart attack or stroke. In fact, this medicine may increase the chance of a heart attack or stroke. The chance may increase with longer use of this medicine and in people who have heart disease. If you take aspirin to prevent heart attack or stroke, talk with your doctor or health wound care specialist. Do not take other medicines that contain aspirin, ibuprofen, or naproxen with this medicine. Side effects such as stomach upset, nausea, or ulcers may be more likely to occur. Many medicines available without a prescription should not be taken with this medicine. This medicine can cause ulcers and bleeding in the stomach and intestines at any time during treatment. Ulcers and bleeding can happen without warning symptoms and can cause . To reduce your risk, do not smoke cigarettes or drink alcohol while you are taking this medicine. You may get drowsy or dizzy. Do not drive, use machinery, or do anything that needs mental alertness until you know how this medicine affects you. Do not stand or sit up quickly, especially if you are an older patient. This reduces the risk of dizzy or fainting spells. This medicine can cause you to bleed more easily. Try to avoid damage to your teeth and gums when you brush or floss your teeth. Mupirocin Topical ointment What is this medicine? MUPIROCIN (myoo PEER oh sin) is an antibiotic. It is used on the skin to treat skin infections. How should I use this medicine? This medicine is for external use only. Follow the directions on the prescription label. Wash your hands before and after use. Before applying, wash the affected area with mild soap and water and pat dry. Apply a small amount to the affected area and rub gently. You can cover the area with a gauze dressing. Do not get this medicine in your eyes. If you do, rinse out with plenty of cool tap water. Do not use your medicine more often than directed. Finish the full course of medicine prescribed by your doctor or health wound care specialist even if you think your condition is better. Do not use over large areas of burnt skin. Talk to your acupressurist regarding the use of this medicine in children. Special care may be needed. What side effects may I notice from receiving this medicine? Side effects that you should report to your doctor or health wound care specialist as soon as possible: skin rash, redness, continued swelling, burning, itching, stinging, or pain Side effects that usually do not require medical attention (report to your doctor or health wound care specialist if they continue or are bothersome): dry skin, itching What may interact with this medicine? Interactions are not expected. Do not use any other skin products on the affected area without telling your doctor or health wound care specialist. What if I miss a dose? If you miss a dose, take it as soon as you can. If it is almost time for your next dose, take only that dose. Do not take double or extra doses. Where should I keep my medicine? Keep out of the reach of children. Store at room temperature between 20 and 25 degrees C (68 and 77 degrees F). Throw away any unused medicine after the expiration date. What should I tell my health care provider before I take this medicine? They need to know if you have any of these conditions: an unusual or allergic reaction to mupirocin, polyethylene glycol (PEG), or other topical antibiotic medicine or trying to get breast-feeding What should I watch for while using this medicine? Tell your doctor or health wound care specialist if your skin condition does not begin to improve within 3 to 5 days. You have been given the following additional information: Abscess, Antiobiotic Treatment Only MRSA Skin Infection, Suspected Or Confirmed Sulfamethoxazole, Trimethoprim Oral tablet Hydrocodone Bitartrate, Acetaminophen Oral tablet Ibuprofen Oral tablet Mupirocin Topical ointment (Electronically signed by Khushbu Casas A.R.N.P. 07/08/2016 23:14)
--- NOTE | 2016-07-08 23:15 | ED MED RECONCILIATION SUMMARY ---
Patient: KRYS COLE Medication Reconciliation Report [facility] VisitID: [id number] [address] [place] [address] 20y, F Registration Date/Time: 07/08/2016 Weight: 146.0 kg Height/Length: 68 in. BMI: 49.0 ALLERGIES: Penicillins The patient's Home Medications are listed below: THE FOLLOWING MEDICATIONS NEED TO BE RECONCILED: Adderall XR Oral Biotin Dicyclomine HCl Oral FLUoxetine HCl Oral Jolessa Oral Potassium PriLOSEC Oral Ranitidine HCl Oral Topiramate Oral The source(s) of the original Home Medication information: patient The following Medications were given to the patient in the Emergency Department: Hydrocodone-APAP [PO] PO 1 tab, administered: 07/08/2016 8:48:00 PM Toradol [IM] IM 60 mg, administered: 07/08/2016 8:51:00 PM The following Medications were prescribed to the patient: Bactrim DS: take 1 tablet orally every 12 hours for 10 days. No refill. Substitution is not permissible. -- Khushbu Casas, A.R.N.P. [place] 5 mg / 325 mg tablets: take 1 to 2 orally every 6 hours as needed for pain. Dispense fifteen (15). No refills. Substitution is permissible. -- Khushbu Casas, A.R.N.P. Motrin 800 mg tablets: take 1 tablet orally every 8 hours as needed for pain. Dispense thirty (30). No refills. Substitution is permissible. -- Khushbu Casas A.R.N.P. Bactroban 2% ointment: apply small amount to affected area three times daily for 5 days. Dispense twenty-two (22) grams. No refills. Substitution is permissible. -- Khushbu Casas A.R.N.P.
--- NOTE | 2016-07-08 23:15 | ED DISCHARGE INSTRUCTIONS ---
Patient: KRYS COLE General Instructions [facility] VisitID: [id number] [address] [place] [address] 20y, F Registration Date/Time: 07/08/2016 Single superficial abscess (R nare). INSTRUCTIONS (warm compresses, as discussed). Warnings: GENERAL WARNINGS: Return or contact your physician immediately if your condition worsens or changes unexpectedly, if not improving as expected, or if other problems arise. Specifically return if problem worsens. Prescription Medications: Bactrim DS: take 1 tablet orally every 12 hours for 10 days. No refill. Substitution is not permissible. [place] 5 mg / 325 mg tablets: take 1 to 2 orally every 6 hours as needed for pain. Dispense fifteen (15). No refills. Substitution is permissible. Motrin 800 mg tablets: take 1 tablet orally every 8 hours as needed for pain. Dispense thirty (30). No refills. Substitution is permissible. Bactroban 2% ointment: apply small amount to affected area three times daily for 5 days. Dispense twenty-two (22) grams. No refills. Substitution is permissible. Follow-up: Follow up with your doctor in about two days even if well. Call for an appointment. Summary of care provided to patient. Understanding of the discharge instructions verbalized by patient and parent. Follow-up with: Judson Haro MD, ENT, , [facility] [address] [address]; Erik Gonzales MD, ENT, , [facility], [address] [place] [address], [address], [place] [address]; Sarbjit Dominguez MD, ENT, , [facility], [address] [place] [address]; Rory Middleton MD, ENT, , [facility], [facility] [place] [address]; Judson Thompson MD, ENT, , [facility], [facility] [address] [address]; Darren Silva MD, ENT, , [place] [facility], [address], [place], [address] Follow up in about two days as needed. Call for an appointment. Summary of care provided to patient. ADDITIONAL INFORMATION Abscess (Antibiotic Treatment Only) An abscess (sometimes called a boil) occurs when bacteria get trapped under the skin and begin to grow. Pus forms inside the abscess as the body responds to the bacteria. An abscess can occur with an insect bite, ingrown hair, blocked oil gland, pimple, cyst, or puncture wound. In the early stages, redness and tenderness are the only symptoms. Sometimes, this stage can be treated with antibiotics alone. If the abscess does not respond to antibiotic treatment, it will need to be drained with a small cut, under local anesthesia. Home care The following will help you care for your abscess at home: Soak the wound in hot water or apply hot packs (small towel soaked in hot water) to the area for 20 minutes at a time. Do this three to four times a day. Apply antibiotic cream or ointment onto the skin 3-4 times a day, unless something else was prescribed. Some ointments include an antibiotic plus a local pain reliever. If your doctor prescribed antibiotics, do not stop taking this medication until you have finished the prescribed course or the doctor tells you to stop. You may use an pvdk-lep-wkdedaw pain medication to control pain, unless another pain medicine was prescribed. If you have chronic liver or kidney disease or ever had a stomach ulcer or GI bleeding, talk with your doctor before using these any of these. Follow-up care Follow up with your health care provider as advised by our staff. Look at your wound each day for the signs of worsening infection listed below. When to seek medical care Get prompt medical attention if any of the following occur: An increase in redness or swelling Red streaks in the skin leading away from the abscess An increase in local pain or swelling Fever of 100.4F (38C) or higher, or as directed by your health care provider Pus or fluid coming from the abscess Staph Infection (MRSA) "Staph" is the short name for the common bacteria called "staphylococcus aureus". Staph bacteria are often present on the skin without causing an infection. If it gets under the skin an infection occurs. This causes redness, tenderness, swelling and sometimes fluid drainage. MRSA stands for "Methicillin-Resistant Staph Aureus". Unlike a common staph infection, MRSA bacteria are resistant to the usual antibiotics and harder to treat. Also, MRSA is more toxic than common staph bacteria. It can spread quickly throughout the body and cause a life-threatening illness. MRSA is spread to others by direct physical contact with the bacteria. MRSA can also be transmitted from items contaminated by a person who has the bacteria, such as bandages, towels, bed sheets, or sports equipment. It is not spread through the air. Once you have a MRSA skin infection, you are at risk of having it recur in the future. If MRSA infection is suspected, the doctor may take a wound culture to confirm the diagnosis. Any abscess will be drained. One or sometimes two antibiotics that work against MRSA will be prescribed. Home Care: 1) Take any antibiotics prescribed exactly as directed until they are gone. 2) Follow the same washing procedures as outlined for Household Members below. 3) Keep draining wounds covered with clean, dry bandages. Change dressings as they become soiled. 4) You and those in contact with you should wash their hands frequently with soap and warm water or use an alcohol-based hand slide fastener chain assembler. Do this after each time you change the bandage or touch the wound. 5) Avoid sharing personal items such as towels, washcloths, razors, clothing, or uniforms. Wash soiled sheets, towels or clothes in hot water with laundry detergent. Use an automatic clothes dryer set on high to kill any remaining bacteria. 6) Remove any artificial nails and nail malay. 7) If you use a gym, wipe down equipment before and after each use. Treatment Of Household Members If you have been diagnosed with possible MRSA infection, those living with you are at higher risk of carrying the bacteria on their skin or in their nose, even if there is no sign of infection. Bacteria must be removed from the skin of all household members (including you) at the same time, so that it is not passed back and forth. Advise them to remove the bacteria as follows: Wash your whole body (scalp to toes) daily for five days with Hibiclens (chlorhexidine). Scrub fingernails with a brush for one minute twice a day. If any skin infections are present (boils, abscess, infected cut) these must be treated by a doctor. Washing alone will not treat a MRSA infection. Clean counter tops and children's toys; do not share personal items such as toothbrush and razors. It is okay to share glasses, plates, utensils. If antibiotic ointment was prescribed use it as directed. Follow Up with your doctor or as advised by our staff. If a wound culture was taken, call as directed in two days to obtain the results. If the culture result is positive for MRSA, tell medical personnel in the future that you were treated for this type of infection. Get Prompt Medical Attention if any of the following occur: -- Increasing redness, swelling or pain -- Red streaks in the skin around the wound -- Weakness or dizziness -- New appearance of pus or drainage from the wound -- New fever over 100.4 F (38.0 C) Sulfamethoxazole, Trimethoprim Oral tablet What is this medicine? SULFAMETHOXAZOLE; TRIMETHOPRIM or SMX-TMP (suhl fuh meth OK chantel zohl; trye METH oh prim) is a combination of a sulfonamide antibiotic and a second antibiotic, trimethoprim. It is used to treat or prevent certain kinds of bacterial infections. It will not work for colds, flu, or other viral infections. How should I use this medicine? Take this medicine by mouth with a full glass of water. Follow the directions on the prescription label. Take your medicine at regular intervals. Do not take it more often than directed. Do not skip doses or stop your medicine early. Talk to your measurement advisor regarding the use of this medicine in children. Special care may be needed. This medicine has been used in children as young as 2 months of age. What side effects may I notice from receiving this medicine? Side effects that you should report to your doctor or health care team coordinator scheduler as soon as possible: allergic reactions like skin rash or hives, swelling of the face, lips, or tongue breathing problems fever or chills, sore throat irregular heartbeat, chest pain joint or muscle pain pain or difficulty passing urine red pinpoint spots on skin redness, blistering, peeling or loosening of the skin, including inside the mouth unusual bleeding or bruising unusually weak or tired yellowing of the eyes or skin Side effects that usually do not require medical attention (report to your doctor or health care team coordinator scheduler if they continue or are bothersome): diarrhea dizziness headache loss of appetite nausea, vomiting nervousness What may interact with this medicine? Do not take this medicine with any of the following medications: aminobenzoate potassium dofetilide metronidazole This medicine may also interact with the following medications: PAYAM inhibitors like benazepril, enalapril, lisinopril, and ramipril cyclosporine digoxin diuretics indomethacin medicines for diabetes methenamine methotrexate phenytoin potassium supplements pyrimethamine sulfinpyrazone tricyclic antidepressants warfarin What if I miss a dose? If you miss a dose, take it as soon as you can. If it is almost time for your next dose, take only that dose. Do not take double or extra doses. Where should I keep my medicine? Keep out of the reach of children. Store at room temperature between 20 to 25 degrees C (68 to 77 degrees F). Protect from light. Throw away any unused medicine after the expiration date. What should I tell my health care provider before I take this medicine? They need to know if you have any of these conditions: anemia asthma being treated with anticonvulsants if you frequently drink alcohol containing drinks kidney disease liver disease low level of folic acid or dugsqzj-[id number]-kxyoocphr dehydrogenase poor nutrition or malabsorption porphyria severe allergies thyroid disorder an unusual or allergic reaction to sulfamethoxazole, trimethoprim, sulfa drugs, other medicines, foods, dyes, or preservatives or trying to get breast-feeding What should I watch for while using this medicine? Tell your doctor or health care team coordinator scheduler if your symptoms do not improve. Drink several glasses of water a day to reduce the risk of kidney problems. Do not treat diarrhea with over the counter products. Contact your doctor if you have diarrhea that lasts more than 2 days or if it is severe and watery. This medicine can make you more sensitive to the sun. Keep out of the sun. If you cannot avoid being in the sun, wear protective clothing and use a sunscreen. Do not use sun lamps or tanning beds/booths. Hydrocodone Bitartrate, Acetaminophen Oral tablet What is this medicine? ACETAMINOPHEN; HYDROCODONE (a set a PETER loi fen; carlos droe KOE done) is a pain reliever. It is used to treat mild to moderate pain. How should I use this medicine? Take this medicine by mouth. Swallow it with a full glass of water. Follow the directions on the prescription label. If the medicine upsets your stomach, take the medicine with food or milk. Do not take more than you are told to take. Talk to your measurement advisor regarding the use of this medicine in children. This medicine is not approved for use in children. What side effects may I notice from receiving this medicine? Side effects that you should report to your doctor or health care team coordinator scheduler as soon as possible: allergic reactions like skin rash, itching or hives, swelling of the face, lips, or tongue breathing problems confusion feeling faint or lightheaded, falls stomach pain yellowing of the eyes or skin Side effects that usually do not require medical attention (report to your doctor or health care team coordinator scheduler if they continue or are bothersome): nausea, vomiting stomach upset What may interact with this medicine? alcohol antihistamines isoniazid medicines for depression, anxiety, or psychotic disturbances medicines for sleep muscle relaxants naltrexone narcotic medicines (opiates) for pain phenobarbital ritonavir tramadol What if I miss a dose? If you miss a dose, take it as soon as you can. If it is almost time for your next dose, take only that dose. Do not take double or extra doses. Where should I keep my medicine? Keep out of the reach of children. This medicine can be abused. Keep your medicine in a safe place to protect it from theft. Do not share this medicine with anyone. Selling or giving away this medicine is dangerous and against the law. Store at room temperature between 15 and 30 degrees C (59 and 86 degrees F). Protect from light. Keep container tightly closed. Throw away any unused medicine after the expiration date. Discard unused medicine and used packaging carefully. Pets and children can be harmed if they find used or lost packages. What should I tell my health care provider before I take this medicine? They need to know if you have any of these conditions: brain tumor Crohn's disease, inflammatory bowel disease, or ulcerative colitis drink more than 3 alcohol-containing drinks per day drug abuse or addiction head injury heart or circulation problems kidney disease or problems going to the bathroom liver disease lung disease, asthma, or breathing problems an unusual or allergic reaction to acetaminophen, hydrocodone, other opioid analgesics, other medicines, foods, dyes, or preservatives or trying to get breast-feeding What should I watch for while using this medicine? Tell your doctor or health care team coordinator scheduler if your pain does not go away, if it gets worse, or if you have new or a different type of pain. You may develop tolerance to the medicine. Tolerance means that you will need a higher dose of the medicine for pain relief. Tolerance is normal and is expected if you take the medicine for a long time. Do not suddenly stop taking your medicine because you may develop a severe reaction. Your body becomes used to the medicine. This does NOT mean you are addicted. Addiction is a behavior related to getting and using a drug for a non-medical reason. If you have pain, you have a medical reason to take pain medicine. Your doctor will tell you how much medicine to take. If your doctor wants you to stop the medicine, the dose will be slowly lowered over time to avoid any side effects. You may get drowsy or dizzy when you first start taking the medicine or change doses. Do not drive, use machinery, or do anything that may be dangerous until you know how the medicine affects you. Stand or sit up slowly. There are different types of narcotic medicines (opiates) for pain. If you take more than one type at the same time, you may have more side effects. Give your health care provider a list of all medicines you use. Your doctor will tell you how much medicine to take. Do not take more medicine than directed. Call emergency for help if you have problems breathing. The medicine will cause constipation. Try to have a bowel movement at least every 2 to 3 days. If you do not have a bowel movement for 3 days, call your doctor or health care team coordinator scheduler. Too much acetaminophen can be very dangerous. Do not take Tylenol (acetaminophen) or medicines that contain acetaminophen with this medicine. Many non-prescription medicines contain acetaminophen. Always read the labels carefully. Ibuprofen Oral tablet What is this medicine? IBUPROFEN (eye BYOO proe fen) is a non-steroidal anti-inflammatory drug (NSAID). It is used for dental pain, fever, headaches or migraines, osteoarthritis, rheumatoid arthritis, or painful monthly periods. It can also relieve minor aches and pains caused by a cold, flu, or sore throat. How should I use this medicine? Take this medicine by mouth with a glass of water. Follow the directions on the prescription label. Take this medicine with food if your stomach gets upset. Try to not lie down for at least 10 minutes after you take the medicine. Take your medicine at regular intervals. Do not take your medicine more often than directed. A special MedGuide will be given to you by the pharmacist with each prescription and refill. Be sure to read this information carefully each time. Talk to your measurement advisor regarding the use of this medicine in children. Special care may be needed. What side effects may I notice from receiving this medicine? Side effects that you should report to your doctor or health care team coordinator scheduler as soon as possible: allergic reactions like skin rash, itching or hives, swelling of the face, lips, or tongue black or bloody stools, blood in the urine or in vomit breathing problems changes in vision chest pain general ill feeling or flu-like symptoms nausea or vomiting redness, blistering, peeling or loosening of the skin, including inside the mouth slurred speech or weakness on one side of the body stomach pain unexplained weight gain or swelling unusually weak or tired yellowing of eyes or skin Side effects that usually do not require medical attention (report to your doctor or health care team coordinator scheduler if they continue or are bothersome): constipation or diarrhea dizziness gas or heartburn stomach upset What may interact with this medicine? Do not take this medicine with any of the following medications: cidofovir ketorolac methotrexate pemetrexed This medicine may also interact with the following medications: alcohol aspirin diuretics lithium other drugs for inflammation like prednisone warfarin What if I miss a dose? If you miss a dose, take it as soon as you can. If it is almost time for your next dose, take only that dose. Do not take double or extra doses. Where should I keep my medicine? Keep out of the reach of children. Store at room temperature between 15 and 30 degrees C (59 and 86 degrees F). Keep container tightly closed. Throw away any unused medicine after the expiration date. What should I tell my health care provider before I take this medicine? They need to know if you have any of these conditions: asthma cigarette smoker drink more than 3 alcohol containing drinks a day heart disease or circulation problems such as heart failure or leg edema (fluid retention) high blood pressure kidney disease liver disease stomach bleeding or ulcers an unusual or allergic reaction to ibuprofen, aspirin, other NSAIDS, other medicines, foods, dyes, or preservatives or trying to get breast-feeding What should I watch for while using this medicine? Tell your doctor or healthcare professional if your symptoms do not start to get better or if they get worse. This medicine does not prevent heart attack or stroke. In fact, this medicine may increase the chance of a heart attack or stroke. The chance may increase with longer use of this medicine and in people who have heart disease. If you take aspirin to prevent heart attack or stroke, talk with your doctor or health care team coordinator scheduler. Do not take other medicines that contain aspirin, ibuprofen, or naproxen with this medicine. Side effects such as stomach upset, nausea, or ulcers may be more likely to occur. Many medicines available without a prescription should not be taken with this medicine. This medicine can cause ulcers and bleeding in the stomach and intestines at any time during treatment. Ulcers and bleeding can happen without warning symptoms and can cause . To reduce your risk, do not smoke cigarettes or drink alcohol while you are taking this medicine. You may get drowsy or dizzy. Do not drive, use machinery, or do anything that needs mental alertness until you know how this medicine affects you. Do not stand or sit up quickly, especially if you are an older patient. This reduces the risk of dizzy or fainting spells. This medicine can cause you to bleed more easily. Try to avoid damage to your teeth and gums when you brush or floss your teeth. Mupirocin Topical ointment What is this medicine? MUPIROCIN (myoo PEER oh sin) is an antibiotic. It is used on the skin to treat skin infections. How should I use this medicine? This medicine is for external use only. Follow the directions on the prescription label. Wash your hands before and after use. Before applying, wash the affected area with mild soap and water and pat dry. Apply a small amount to the affected area and rub gently. You can cover the area with a gauze dressing. Do not get this medicine in your eyes. If you do, rinse out with plenty of cool tap water. Do not use your medicine more often than directed. Finish the full course of medicine prescribed by your doctor or health care team coordinator scheduler even if you think your condition is better. Do not use over large areas of burnt skin. Talk to your measurement advisor regarding the use of this medicine in children. Special care may be needed. What side effects may I notice from receiving this medicine? Side effects that you should report to your doctor or health care team coordinator scheduler as soon as possible: skin rash, redness, continued swelling, burning, itching, stinging, or pain Side effects that usually do not require medical attention (report to your doctor or health care team coordinator scheduler if they continue or are bothersome): dry skin, itching What may interact with this medicine? Interactions are not expected. Do not use any other skin products on the affected area without telling your doctor or health care team coordinator scheduler. What if I miss a dose? If you miss a dose, take it as soon as you can. If it is almost time for your next dose, take only that dose. Do not take double or extra doses. Where should I keep my medicine? Keep out of the reach of children. Store at room temperature between 20 and 25 degrees C (68 and 77 degrees F). Throw away any unused medicine after the expiration date. What should I tell my health care provider before I take this medicine? They need to know if you have any of these conditions: an unusual or allergic reaction to mupirocin, polyethylene glycol (PEG), or other topical antibiotic medicine or trying to get breast-feeding What should I watch for while using this medicine? Tell your doctor or health care team coordinator scheduler if your skin condition does not begin to improve within 3 to 5 days. You have been given the following additional information: Abscess, Antiobiotic Treatment Only MRSA Skin Infection, Suspected Or Confirmed Sulfamethoxazole, Trimethoprim Oral tablet Hydrocodone Bitartrate, Acetaminophen Oral tablet Ibuprofen Oral tablet Mupirocin Topical ointment (Electronically signed by Khushbu Casas A.R.N.P. 07/08/2016 23:14)
--- NOTE | 2016-07-08 23:15 | ED MAR SUMMARY ---
..... Medication Administration Record [facility] [address] [place] [address] Patient: KRYS COLE Visit ID: [id number] 20y, F Weight: 146.0 kg Height/Length: 68 in BMI: 49 ALLERGIES: Penicillins Given 20:48 07/08/2016 Harish Ledesma, R.N. Medication Administered: HYDROCODONE-APAP [PO] (HYDROCODONE-ACETAMINOPHEN), Dose: 1 tab 5/325 mg Tablets PO. Medication Ordered: Hydrocodone-APAP PO 5/325 mg (NOW, HIGH ALERT MEDICATION). Given 20:51 07/08/2016 Harish Ledesma, R.N. Medication Administered: TORADOL [IM] (KETOROLAC TROMETHAMINE), Dose: 60 mg IM. Medication Ordered: Toradol IM 60 mg (NOW).
== END 2016-07-08 21:10 | disposition home or self-care (01) ==
LOC: ED SRH 18:51
DX: J34.0 Abscess, furuncle and carbuncle of nose (principal)